=== PATIENT | female | born 1960 | race Caucasian/White ===

== ENCOUNTER 2024-07-01 23:45 | Emergency (ER) | payer OTHER, BC, SELFPAY ==
[2024-07-01 23:45] VITALS: PULSE 85; RESP 18; TEMP 36.6; O2SAT 100
[2024-07-01 23:53] VITALS: BP 177/79; PULSE 84; O2SAT 98
[2024-07-02] VITALS (174 sets, daily range): BP systolic 117–183; BP diastolic 48–112; PULSE 58–99; RESP 9–32; O2SAT 85–100
[2024-07-02] MEDS: ACETAMINOPHEN 1,000 MG/100 ML BAG 400 MG IVPB (00:15)
[2024-07-02 00:29] LABS: Abs Immature Grans 0.11 10^3/uL (0.0-0.06); Absolute Basophil Count 0.05 10^3/uL (0.0-0.2); Absolute Eosinophil Count 0.18 10^3/uL (0.0-0.7); Absolute Lymphocyte Count 2.38 10^3/uL (1.2-3.4); Absolute Monocyte Count 0.53 10^3/uL (0.1-0.8); Absolute Neutrophil Count 5.41 10^3/uL (1.2-6.7); Basophils % 0.6 %; Eosinophils % 2.1 %; HCT 41.8 % (36.0-46.0); HGB 13.9 g/dL (11.2-15.7); Immature Grans % 1.3 %; Lymphocytes % 27.5 %; MCH 30.5 pg (27.0-33.0); MCHC 33.3 % (32.0-36.0); MCV 92 fL (80-95); MPV 9.9 fL (8.0-11.0); Monocytes % 6.1 %; Neutrophils % 62.4 %; Platelet Count 256 10^3/uL (130-400); RBC 4.55 10^6/uL (3.93-5.22); RDW 12.7 % (11.7-14.6); RDW-SD 42.8 fL; WBC 8.66 10^3/uL (4.4-10.8)
[2024-07-02 00:39] LABS: PTT Activated 24.6 sec (20.6-30.2); Prothrombin Time 9.7 sec (9.1-11.1)
[2024-07-02 00:50] LABS: ALT 47 U/L (14-59); AST 49 U/L (15-37); Albumin 3.9 g/dL (3.4-5.0); Alkaline Phosphatase 239 U/L (46-116); Anion Gap 6.5 mmol/L (3-11); BUN 14 mg/dL (7-18); Bilirubin, Total 0.31 mg/dL (0.2-1.0); CO2 31.5 mmol/L (21.0-32.0); Calcium 9.9 mg/dL (8.5-10.1); Chloride 103 mmol/L (98-107); Estimated GFR 62.91 (mL/min/1.73m2); Glucose 141 mg/dL (74-106); Magnesium 1.9 mg/dL (1.8-2.4); Potassium 3.9 mmol/L (3.5-5.1); Sodium 141 mmol/L (136-145); Total Protein 8.6 g/dL (6.4-8.2)
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
[2024-07-02 00:52] LABS: Troponin I < 4 ng/L (<or=51)
[2024-07-02 00:58] LABS: ETHANOL BLOOD < 3.0 mg/dL (<10)
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
[2024-07-02] MEDS: Omnipaque 350 MG/ML 100 ML BTL IJ (01:13)
[2024-07-02] MEDS: Normal Saline - Diluent 50 ML VIAL IJ (01:14)
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
[2024-07-02] MEDS: fentaNYL 100 MCG/2 ML VIAL 25 MCG IVP ×2 (03:36→07:26)
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
[2024-07-02] MEDS: Normal Saline Flush 10 ML SYR IVP ×3 (07:26→15:08)
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
[2024-07-02] MEDS: Acetaminophen 500 MG TAB 1000 MG PO ×2 (10:17→17:31)
[2024-07-02] MEDS: Gadoterate meglumine 20 ML SYRINGE IVP (12:14)
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
[2024-07-02] MEDS: fentaNYL 100 MCG/2 ML VIAL IVP (15:07)
--- NOTE | 2024-07-02 15:20 | DI.RAD_ITS ---
Exam(s) XR LUMBAR SPINE FLEX/EXT ONLY EXAM: XR LUMBAR SPINE FLEX/EXT ONLY CLINICAL HISTORY: 45 90. TECHNIQUE: 2D digital imaging was performed. COMPARISON: CR XR LUMBAR SPINE 1V ONLY from 07/02/[address] THORACIC LUMBAR SPINE REC from 07/02/2024 FINDINGS: Five views There is acute appearing fracture of L1 vertebral body with approximately 30 percent height loss. No other fractures identified. Mild degenerative anterolisthesis L4 upon L5 noted. This does not incr ease with flexion extension. IMPRESSION: L1 acute compression fracture. CT scan performed earlier today reveals the fracture involving the po sterior cortex of this vertebral body and the posterior cortex is retropulsed 4-5 mm. DATA REPOSITORY: RADIATION DOSE DELIVERED:
[2024-07-02] MEDS: Methocarbamol 500 MG TAB PO (17:31)
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
--- NOTE | 2024-07-03 11:35 | IN_ITS ---
PT Emergency Department Note Patient Location: Emergency Room Referring Provider: Yakov Alaniz PT Diagnosis: L1 Fracture with subdural hematoma Diagnosis: L1 Fracture with subdural hematoma Date of Service: July 02, 2024 ordered PT evaluation on 07/02/24 Then notified pt was being transferred to [facility]. Therefore PT evaluation not completed. ED was given a TLSO from [facility] prior to discharge.
--- NOTE | 2024-07-09 10:20 | NUR.NOTE ---
chart access to document back brace Nursing Note:
== END 2024-07-02 19:03 | disposition short-term general hospital (02) ==
PROVIDERS: Emergency Medicine Emergency Medical Services; Emergency Provider Emergency Medicine
DX: S32.011A Stable burst fracture of first lumbar vertebra, initial encounter for closed fracture (principal); E03.9 Hypothyroidism, unspecified; V48.6XXA Car passenger injured in noncollision transport accident in traffic accident, initial encounter
CPT/HCPCS: 00123; 72120; 72158; 74177; 80053; 86850; 86900; 86901; 93005; 96374; 96375; 96376; 99285; 70450; 71260; 72020; 72125; 80320; 83735; 84484; 85025; 85610; 85730; 93010; J0131; J3010; J3490